=== PATIENT | male | born 1980 | race Caucasian/White ===

== ENCOUNTER → 2024-10-19 | Day surgery (SDC) | payer OTHER ==
[~2024-10-19] MED LIST: BIKTARVY 50-201 EACH PO; FLOMAX0.4 MG PO; LIDOCAINE HCL 2% LOCAL INJ 5 ML SDV VIAL INJ ONE; MIDAZOLAM HCL 2 MG/2 ML VIAL ONE; OMEPRAZOLE40 MG PO; PROPOFOL IV EMULSION 10 MG/ML 20 ML VIAL ONE; TERBINAFINE HC250 MG PO; TESTOSTERONE SHOTS
[2024-10-19] MEDS: LACTATED RINGER'S 1,000 ML ONE (08:18)
[2024-10-19 10:02] VITALS: TEMP 97.6
[2024-10-19 11:10] VITALS: BP 126/78; PULSE 82; RESP 18; O2SAT 100
== END | disposition home or self-care (01) ==
LOC: OR 07:59
PROVIDERS: ATTEND Internal Medicine Gastroenterology
DX: K21.00 Gastro-esophageal reflux disease with esophagitis, without bleeding (principal); K29.50 Unspecified chronic gastritis without bleeding; B96.81 Helicobacter pylori [H. pylori] as the cause of diseases classified elsewhere; K22.70 Barrett's esophagus without dysplasia; K44.9 Diaphragmatic hernia without obstruction or gangrene; Z21 Asymptomatic human immunodeficiency virus [HIV] infection status; Z88.2 Allergy status to sulfonamides; Z79.899 Other long term (current) drug therapy
CPT/HCPCS: 43239; 88305; 88342; J2003; J2250; J2704; J7121

== ENCOUNTER → 2024-12-20 | Day surgery (SDC) | payer OTHER ==
[~2024-12-20] MED LIST changes: +BUPIVACAINE/EPI 0.5% 30ML SDV-MPF INJ ONE; +CEFAZOLIN SODIUM 2 GM ONE; +DEXAMETHASONE SOD PHOS INJ 4 MG/ML SDV ONE; +FENTANYL CITRATE/PF 100MCG/2 ML INJ ONE; +GLYCOPYRROLATE INJ 0.2 MG/ML VIAL ONE; +KETOROLAC TROMETHAMINE 30 MG/ML VIAL ONE; +LACTATED RINGER'S 1,000 ML ONE; +NEOSTIGMINE 1 MG/ML 10ML VIAL ONE; +ONDANSETRON HCL INJ 2MG/ML 2ML 2 MG/ML VIAL ONE; +ROCURONIUM BROMIDE 1 ML IV ONE
[2024-12-20 10:40] VITALS: TEMP 97.1
[2024-12-20 11:30] VITALS: BP 130/85; PULSE 96; RESP 16; O2SAT 99
== END | disposition home or self-care (01) ==
LOC: OR 07:50
PROVIDERS: ATTEND Orthopaedic Surgery
DX: M75.122 Complete rotator cuff tear or rupture of left shoulder, not specified as traumatic (principal); M75.42 Impingement syndrome of left shoulder; M67.814 Other specified disorders of tendon, left shoulder; M75.02 Adhesive capsulitis of left shoulder; Z21 Asymptomatic human immunodeficiency virus [HIV] infection status; K21.9 Gastro-esophageal reflux disease without esophagitis; Z88.2 Allergy status to sulfonamides; Z79.899 Other long term (current) drug therapy; Z87.891 Personal history of nicotine dependence
CPT/HCPCS: 29826; 29827; C1713; J1100; J2003; J2250; J2405; J2704; J2710; J3010; J7121; J1885

== ENCOUNTER 2025-02-09 07:38 | Observation (INO) | payer OTHER ==
[~2025-02-09] VITALS: Ht 170.2 cm; Wt 75.7 kg
[~2025-02-09 07:38] MED LIST changes: -BUPIVACAINE/EPI 0.5% 30ML SDV-MPF INJ ONE; -CEFAZOLIN SODIUM 2 GM ONE; -DEXAMETHASONE SOD PHOS INJ 4 MG/ML SDV ONE; -FENTANYL CITRATE/PF 100MCG/2 ML INJ ONE; -GLYCOPYRROLATE INJ 0.2 MG/ML VIAL ONE; -KETOROLAC TROMETHAMINE 30 MG/ML VIAL ONE; -LACTATED RINGER'S 1,000 ML ONE; -LIDOCAINE HCL 2% LOCAL INJ 5 ML SDV VIAL INJ ONE; -MIDAZOLAM HCL 2 MG/2 ML VIAL ONE; -NEOSTIGMINE 1 MG/ML 10ML VIAL ONE; -ONDANSETRON HCL INJ 2MG/ML 2ML 2 MG/ML VIAL ONE; -PROPOFOL IV EMULSION 10 MG/ML 20 ML VIAL ONE; -ROCURONIUM BROMIDE 1 ML IV ONE
[2025-02-09] MEDS ORDERED: PROPOFOL IV EMULSION 10 MG/ML 20 ML VIAL ONE ×2 (08:00→09:55)
[2025-02-09] MEDS ORDERED: ROCURONIUM BROMIDE 0 ML IV ONE (08:00)
[2025-02-09] MEDS ORDERED: LIDOCAINE HCL 2% LOCAL INJ 5 ML SDV VIAL INJ ONE (08:00)
[2025-02-09] MEDS ORDERED: FENTANYL CITRATE/PF 100MCG/2 ML INJ ONE ×2 (08:01→09:54)
[2025-02-09] MEDS: LACTATED RINGER'S 1,000 ML ONE (08:54)
[2025-02-09] MEDS ORDERED: METOCLOPRAMIDE HCL 10 MG/2ML VIAL ONE (09:32)
[2025-02-09] MEDS ORDERED: DEXAMETHASONE SOD PHOS INJ 4 MG/ML SDV ONE ×2 (09:32)
[2025-02-09] MEDS ORDERED: ONDANSETRON HCL INJ 2MG/ML 2ML 2 MG/ML VIAL ONE (09:32)
[2025-02-09] MEDS ORDERED: ACETAMINOPHEN 1000 MG/100 ML 100 ML IV ONE (09:40)
[2025-02-09] MEDS ORDERED: ROCURONIUM BROMIDE 1 ML IV ONE ×2 (09:41→10:19)
[2025-02-09] MEDS ORDERED: SUGAMMADEX SODIUM 200 MG/2 ML VIAL IV ONE (10:46)
[2025-02-09] MEDS ORDERED: SEVOFLURANE INHAL SOLN 250 ML PEN BTL ONE (13:04)
[2025-02-09] MEDS: HYDROMORPHONE 1MG/1ML INJ IV PRN (13:49)
[2025-02-09 13:52] VITALS: BP 126/90; PULSE 81; RESP 20; O2SAT 98
[2025-02-09] MEDS: SODIUM CHLORIDE 0.9% 1000ML 1,000 ML IV SCH (13:58)
[2025-02-09 16:00] VITALS: BP 140/85; PULSE 78; RESP 18; TEMP 97.6; O2SAT 98
[2025-02-09] MEDS: SODIUM CHLORIDE 0.9% 250ML IRRIG IR SCH (16:30)
[2025-02-09] MEDS: LIDOCAINE HCL 1% 2 ML AMP ONE (17:04)
[2025-02-09] MEDS: BUPIVACAINE LIPOSOME/PF 266 MG/20 ML IJ ONE (17:04)
[2025-02-09] MEDS: CHLORASEPTIC SPRAY 177 ML BTL MM PRN (20:36)
[2025-02-09] MEDS: ONDANSETRON HCL INJ 2MG/ML 2ML 2 MG/ML VIAL IV PRN (20:37)
[2025-02-09 20:53] VITALS: BP 130/87; PULSE 96; RESP 18; TEMP 97.7; O2SAT 96
[2025-02-09 20:54] VITALS: BP 130/87; PULSE 96; RESP 18; TEMP 97.7; O2SAT 96
[2025-02-09] MEDS: ACETAMINOPHEN 1000 MG/100 ML IV PRN (23:53)
[2025-02-10] VITALS: BP 109/72; PULSE 89; RESP 16; TEMP 98.2; O2SAT 98
[2025-02-10 05:06] VITALS: BP 123/48; PULSE 90; RESP 18; TEMP 98.5; O2SAT 100
[2025-02-10 05:20] LABS: BASOPHILS % 0.1 % (0.0-1.0); EOSINOPHILS % 0.5 % (0.0-6.0); HEMATOCRIT 41.5 % (38.2-49.6); HEMOGLOBIN 14.9 g/dL (14.0-18.0); LYMPHOCYTES # (AUTO) 1.2 (1.0-3.2); LYMPHOCYTES % 15.7 % (18.0-39.1); MEAN CORPUSCULAR HEMOGLOBIN 31.4 pg (28-32); MEAN CORPUSCULAR HGB CONC 35.9 g/dL (31-35); MEAN CORPUSCULAR VOLUME 87.4 fL (81-99); MONOCYTES % 7.1 % (4.4-11.3); NEUTROPHILS # (AUTO) 5.7 (2.1-6.9); NEUTROPHILS % 76.3 % (38.7-80.0); PLATELET COUNT 308 x10e3/uL (140-360); RED BLOOD COUNT 4.75 x10e6/uL (4.3-5.7); RED CELL DISTRIBUTION WIDTH 14.1 % (11.7-14.4); WHITE BLOOD COUNT 7.46 x10e3/uL (4.8-10.8)
[2025-02-10 05:21] LABS: MONOCYTES # (AUTO) 0.5 (0.2-0.8)
[2025-02-10 05:46] LABS: CALCIUM 8.4 mg/dL (8.4-10.2); CREATININE, SERUM 1.12 mg/dL (0.72-1.25)
[2025-02-10 08:00] VITALS: BP 129/63; PULSE 92; RESP 19; TEMP 98.1; O2SAT 100
[2025-02-10 08:10] VITALS: BP 129/63; PULSE 92; RESP 19; TEMP 98.1; O2SAT 100
[2025-02-10 12:00] VITALS: BP 112/67; PULSE 86; RESP 19; TEMP 97.8; O2SAT 99
== END 2025-02-10 14:00 | disposition home or self-care (01) ==
LOC: OR 07:38 → PACU V 13:08 → MED/SURG 13:38
PROVIDERS: ADMIT Surgery; ATTEND Surgery
DX: K44.9 Diaphragmatic hernia without obstruction or gangrene (principal); K21.9 Gastro-esophageal reflux disease without esophagitis; I10 Essential (primary) hypertension; Z01.810 Encounter for preprocedural cardiovascular examination
CPT/HCPCS: 36415; 43280; 80048; 85025; 93005; C1766; G0378 ×2; J0131; J0666; J0690; J1100; J1171 ×2; J2003 ×2; J2405 ×2; J2470 ×2; J2704; J2765; J3010; J7030 ×2; J7121

== ENCOUNTER → 2025-02-23 | Outpatient (REF) | payer OTHER ==
[~2025-02-23] MED LIST changes: +DIATRIZOATE MEGL/DIATRIZOA SOD 30 ML BTL PO ONE
== END ==
LOC: DX 09:42
PROVIDERS: ATTEND Surgery
DX: R13.10 Dysphagia, unspecified (principal)
CPT/HCPCS: 74246; Q9963

== ENCOUNTER → 2025-03-09 | Day surgery (SDC) | payer OTHER ==
[~2025-03-09] MED LIST changes: -DIATRIZOATE MEGL/DIATRIZOA SOD 30 ML BTL PO ONE; +FENTANYL CITRATE/PF 100MCG/2 ML INJ ONE; +LIDOCAINE HCL 2% LOCAL INJ 5 ML SDV VIAL INJ ONE; +PROPOFOL IV EMULSION 10 MG/ML 20 ML VIAL ONE; +PROPOFOL IV EMULSION 50 ML IV ONE
[2025-03-09] MEDS: LACTATED RINGER'S 1,000 ML ONE (11:10)
[2025-03-09 11:24] LABS: BASOPHILS % 0.5 % (0.0-1.0); EOSINOPHILS # (AUTO) 0.1 (0.0-0.4); EOSINOPHILS % 1.5 % (0.0-6.0); LYMPHOCYTES # (AUTO) 2.1 (1.0-3.2); LYMPHOCYTES % 35.6 % (18.0-39.1); MEAN CORPUSCULAR HEMOGLOBIN 30.6 pg (28-32); MEAN CORPUSCULAR HGB CONC 34.8 g/dL (31-35); MONOCYTES # (AUTO) 0.5 (0.2-0.8); MONOCYTES % 8.2 % (4.4-11.3); NEUTROPHILS # (AUTO) 3.3 (2.1-6.9); NEUTROPHILS % 54.2 % (38.7-80.0); PLATELET COUNT 276 x10e3/uL (140-360); RED BLOOD COUNT 5.23 x10e6/uL (4.3-5.7); RED CELL DISTRIBUTION WIDTH 13.1 % (11.7-14.4); WHITE BLOOD COUNT 6.01 x10e3/uL (4.8-10.8)
[2025-03-09 11:57] LABS: ALBUMIN 4.2 g/dL (3.5-5.0); ALBUMIN/GLOBULIN RATIO 1.5 (0.8-2.0); ANION GAP 12.3 mmol/L (8-16); BILIRUBIN,TOTAL 1.1 mg/dL (0.2-1.2); CALCIUM 9.1 mg/dL (8.4-10.2); CREATININE, SERUM 1.3 mg/dL (0.72-1.25)
[2025-03-09 12:00] LABS: POTASSIUM 5.3 mmol/L (3.5-5.1)
[2025-03-09 13:25] VITALS: BP 121/79; PULSE 79; RESP 15; TEMP 97.6; O2SAT 99
== END | disposition home or self-care (01) ==
LOC: ENDO 10:04
PROVIDERS: ATTEND Surgery
DX: K21.00 Gastro-esophageal reflux disease with esophagitis, without bleeding (principal); K29.00 Acute gastritis without bleeding; K29.50 Unspecified chronic gastritis without bleeding; Z21 Asymptomatic human immunodeficiency virus [HIV] infection status; Z98.890 Other specified postprocedural states; Z88.2 Allergy status to sulfonamides; Z79.899 Other long term (current) drug therapy
CPT/HCPCS: 36415; 43239; 80053; 85025; 88305; 88342; J2003; J2704 ×2; J3010; J7121

== ENCOUNTER → 2025-04-20 | Day surgery (SDC) | payer BC, OTHER ==
[~2025-04-20] MED LIST changes: -PROPOFOL IV EMULSION 50 ML IV ONE
[2025-04-20] MEDS: LACTATED RINGER'S 1,000 ML ONE (11:42)
[2025-04-20 11:54] LABS: BASOPHILS % 0.7 % (0.0-1.0); EOSINOPHILS # (AUTO) 0.1 (0.0-0.4); EOSINOPHILS % 2.6 % (0.0-6.0); HEMATOCRIT 43.2 % (38.2-49.6); HEMOGLOBIN 15.8 g/dL (14.0-18.0); LYMPHOCYTES % 47.9 % (18.0-39.1); MEAN CORPUSCULAR HEMOGLOBIN 29.8 pg (28-32); MEAN CORPUSCULAR HGB CONC 36.6 g/dL (31-35); MEAN CORPUSCULAR VOLUME 81.5 fL (81-99); MONOCYTES # (AUTO) 0.4 (0.2-0.8); NEUTROPHILS # (AUTO) 1.7 (2.1-6.9); NEUTROPHILS % 39.6 % (38.7-80.0); PLATELET COUNT 272 x10e3/uL (140-360); RED CELL DISTRIBUTION WIDTH 12.2 % (11.7-14.4)
[2025-04-20 12:07] LABS: ALBUMIN 4.2 g/dL (3.5-5.0); ALBUMIN/GLOBULIN RATIO 1.6 (0.8-2.0); ANION GAP 12.7 mmol/L (8-16); CALCIUM 8.8 mg/dL (8.4-10.2); CREATININE, SERUM 1.15 mg/dL (0.72-1.25); POTASSIUM 3.7 mmol/L (3.5-5.1); TOTAL PROTEIN 6.9 g/dL (6.5-8.1)
[2025-04-20 12:17] VITALS: TEMP 98
[2025-04-20 12:40] VITALS: BP 119/66; PULSE 81; RESP 18; O2SAT 99
== END | disposition home or self-care (01) ==
LOC: ENDO 11:23
PROVIDERS: ATTEND Surgery
DX: R13.10 Dysphagia, unspecified (principal); R10.13 Epigastric pain; K22.2 Esophageal obstruction; K21.9 Gastro-esophageal reflux disease without esophagitis; B20 Human immunodeficiency virus [HIV] disease
CPT/HCPCS: 36415; 43249; 80053; 85025; C1726; J2003; J2704; J3010; J7121; 43450

== ENCOUNTER → 2025-06-07 | Outpatient (REF) | payer OTHER ==
[~2025-06-07] MED LIST changes: -FENTANYL CITRATE/PF 100MCG/2 ML INJ ONE; -LIDOCAINE HCL 2% LOCAL INJ 5 ML SDV VIAL INJ ONE; -PROPOFOL IV EMULSION 10 MG/ML 20 ML VIAL ONE
== END ==
LOC: DX 08:27
PROVIDERS: ATTEND Surgery
DX: R13.10 Dysphagia, unspecified (principal)
CPT/HCPCS: 74220